=== PATIENT | female | born 1935 | race Caucasian/White ===

== ENCOUNTER → 2017-06-14 | Outpatient (CLI) | payer MEDICARE, OTHER ==
[~2017-06-14] MED LIST: MIRALAX17 GM PO
--- NOTE | 2017-06-14 15:47 | NUR ---
ARRIVED AMBULATORY. PORT A CATH INTACT WITH NO SIGN OF INFECTION. PORT ACCESSED WITH OUT DIFFICULTY. GOOD BRISK BLOOD RETURN NOTED AND FLLUSHED WITH EASE. PORT FLUSHED AND DEACCESSED. TOLERATED WELL. DENIES NEEDS AT DISCHARGE.
== END ==
LOC: M.INFUS 06-13 14:30
DX: C77.2 Secondary and unspecified malignant neoplasm of intra-abdominal lymph nodes (principal); C18.7 Malignant neoplasm of sigmoid colon

== ENCOUNTER → 2017-08-09 | Outpatient (CLI) | payer MEDICARE, OTHER ==
--- NOTE | 2017-08-09 15:17 | NUR ---
PORT A CATH ACCESSED AND FLUSHED WITH EASE. PORT FLUSHED AND THEN DEACCESSED. BANDAID APPLIED. DENIES NEEDS AT [facility].
== END ==
LOC: M.INFUS 01:26
DX: C18.7 Malignant neoplasm of sigmoid colon (principal); C77.2 Secondary and unspecified malignant neoplasm of intra-abdominal lymph nodes; Z85.038 Personal history of other malignant neoplasm of large intestine

== ENCOUNTER → 2017-10-11 | Outpatient (CLI) | payer MEDICARE, OTHER | LOC: M.INFUS 00:54 | DX: Z45.2 Encounter for adjustment and management of vascular access device (principal) ==

== ENCOUNTER → 2018-01-05 | Outpatient (CLI) | payer MEDICARE, OTHER ==
--- NOTE | 2018-01-05 15:58 | NUR ---
ARRIVED AMUBLATORY. MADE SELF COMFORTABLE. PORT A CATH ACCESSED WITH OUT DIFFICULTY. GOOD EASY FLUSH NO BLOOD RETURN. DISCCUSED WITH PT NEED FOR CATHFLO. PT STATES THAT SHE DOES NOT HAVE TIME TODAY AND WILL SCHEDULE TO CAME BACK IN AND HAVE IT DONE. DENEIS QUESTION AT DISCHARGE.
== END ==
LOC: M.INFUS 02:00
DX: Z45.2 Encounter for adjustment and management of vascular access device (principal); C18.7 Malignant neoplasm of sigmoid colon; C77.2 Secondary and unspecified malignant neoplasm of intra-abdominal lymph nodes; R10.9 Unspecified abdominal pain; Z85.038 Personal history of other malignant neoplasm of large intestine

== ENCOUNTER → 2018-02-11 | Emergency (ER) | payer MEDICARE, OTHER ==
[~2018-02-11] VITALS: Ht 167.6 cm; Wt 61.2 kg
[2018-02-11 16:12] LABS: ABSOLUTE LYMPHOCYTES 0.7 thou/uL (0.8-5.3); ABSOLUTE MONOCYTES 0.3 thou/uL (0.0-1.2); ABSOLUTE NEUTROPHILS 3.1 thou/uL (1.6-8.1); BASOPHILS 0.3 %; EOSINOPHILS 0.1 %; HEMATOCRIT 40.4 % (37.0-47.0); HEMOGLOBIN 13.4 gm/dL (12.0-15.0); LYMPHOCYTES 17.4 %; MCH 30.6 pg (26.0-34.0); MCHC 33.2 g/dL (28.0-37.0); MCV 92.3 fL (80.0-100.0); MONOCYTES 6.5 %; MPV 7.3 fl. (7.2-11.1); NUCLEATED RBCS 0 /100WBC; PLATELET COUNT* 179 thou/uL (150-400); POLYS 75.7 %; RBC 4.38 mil/uL (4.20-5.00); RDW-CV 14.7 % (10.5-14.5); WBC 4.1 thou/uL (4.0-11.0)
[2018-02-11 16:23] LABS: ANION GAP 3 mmol/L (7-16); BUN 13 mg/dL (7-18); CHLORIDE 102 mmol/L (98-107); CO2 29 mmol/L (21-32); CREATININE 0.8 mg/dL (0.6-1.3); GLUCOSE 111 mg/dL (70-99); POTASSIUM 3.8 mmol/L (3.5-5.1); SODIUM 134 mmol/L (136-145)
[2018-02-11 16:30] LABS: ALBUMIN 3.6 g/dL (3.4-5.0); ALKALINE PHOSPHATASE 93 U/L (46-116); LIPASE 185 U/L (73-393); SGOT 29 U/L (15-37); SGPT 30 U/L (30-65); TOTAL BILIRUBIN 0.3 mg/dL (<0.1-1.0); TOTAL PROTEIN 6.6 g/dL (6.4-8.2); TROPONIN-I LEVEL <0.06 ng/mL (<0.06)
[2018-02-11 17:27] LABS: URINE BILIRUBIN NEGATIVE (Negative); URINE BLOOD NEGATIVE (Negative); URINE CLARITY CLEAR; URINE COLOR YELLOW; URINE GLUCOSE-RANDOM NEGATIVE (Negative); URINE KETONES 2+ (Negative); URINE LEUKOCYTES-REFLEX TRACE (Negative); URINE NITRITE-REFLEX NEGATIVE (Negative); URINE PROTEIN NEGATIVE (Negative); URINE SPECIFIC GRAVITY >= 1.030 (1.005-1.030); URINE UROBILINOGEN 0.2 E.U./dl (0.2-1.0)
[2018-02-11 17:45] LABS: BACTERIA-REFLEX 1-9 Few /HPF (None Seen); MUCUS 4-6 Moderate strn/LPF (None Seen); SQUAMOUS 0-3 Few /LPF (0-3); URINE WBC-REFLEX 0-5 Rare /HPF (0-5)
[2018-02-11 17:46] LABS: CASTS None Seen /LPF (None Seen); CRYSTALS None Seen /LPF (None Seen); URINE RBC None Seen /HPF (0-2)
[2018-02-11 18:17] VITALS: BP 137/80
== END ==
LOC: M.ERS 15:51
PROVIDERS: Nurse Practitioner Family
DX: R11.2 Nausea with vomiting, unspecified (principal); R10.84 Generalized abdominal pain; Z96.643 Presence of artificial hip joint, bilateral; Z85.038 Personal history of other malignant neoplasm of large intestine

== ENCOUNTER → 2018-03-09 | Outpatient (CLI) | payer MEDICARE, OTHER ==
--- NOTE | 2018-03-09 16:25 | NUR ---
ARRIVED AMBULATORY. MADE SELF COMFORTABLE IN RECLINER. PORT A CATH ACCESSED. ABLE TO FLUSH BUT NO BLOOD RETURN WITH ASPERATION. CATHFLOW INSTILLED PER POLICY.
--- NOTE | 2018-03-10 11:20 | NUR ---
ARRIVED AMBULATORY. MADE SELF COMFORTABLE IN RECLINER. PORT A CATH ACCESSED. ABLE TO FLUSH PORT BUT NOT ABLE TO GET BLOOD RETURN WITH ASPERATION. CATH FLOW INSTILLED PER PROTOCOL. AT 2 HOURS UNABLE TO GET BLOOD RETURN. PORT LEFT ACCESSED PT DISCHARGED TO HOME WITH INSTRUCTION TO RETURN FOR 2ND DOSE OF CATH FLOW TODAY. PT ARRIVED TO INFUSION AMBULATORY. LINE CHECKED AND STILL ABLE TO FLUSH BUT NO BLOOD RETUN NOTED. 2ND DOS IF CATH FLOW INSTILLED.
--- NOTE | 2018-03-10 15:51 | NUR ---
PORT CHECKED FOR PATENCY. GOOD BRISK BLOOD RETURN NOTED AND FLUSHED WITH EASE. PORT FLUSHED AND PACKED WITH HEPARIN. PORT DEACCESSED. TOLERATED WELL.
== END ==
LOC: M.INFUS 03-07 04:46
DX: Z45.2 Encounter for adjustment and management of vascular access device (principal); C18.8 Malignant neoplasm of overlapping sites of colon

== ENCOUNTER → 2018-04-03 | Outpatient (CLI) | payer MEDICARE, OTHER ==
--- NOTE | 2018-04-03 15:34 | NUR ---
PORT A CATH ACCESSED. GOOD BRISK BLOOD RETURN NOTED AND FLUSHED WITH EASE. PORT FLUSHED THEN DEACCESSED. TOLERATED WELL.
== END ==
LOC: M.INFUS 06:24
DX: Z45.2 Encounter for adjustment and management of vascular access device (principal)

== ENCOUNTER → 2018-05-01 | Outpatient (CLI) | payer MEDICARE, OTHER | LOC: M.INFUS 06:54 | DX: Z45.2 Encounter for adjustment and management of vascular access device (principal) ==

== ENCOUNTER → 2018-05-29 | Outpatient (CLI) | payer MEDICARE, OTHER ==
--- NOTE | 2018-05-29 15:32 | NUR ---
ARRIVED AMUBLATORY. MADE SELF COMFORTABLE IN RECLINER. PORT A CATH ACCESSED WITH OUT DIFFICULTY. SLUGGISH BLOOD RETURN NOTED LINE FLUSHED WITH EASE. PT DOES NOT HAVE TIME TO CATH FLOW TODAY. STATED SHE WANTS TO HAVE PORT REMOVED SOON AND WILL CALL AND SCHEDULE NEXT MONTH IF NEEDED.
== END ==
LOC: M.INFUS 15:11
DX: Z45.2 Encounter for adjustment and management of vascular access device (principal); R10.9 Unspecified abdominal pain

== ENCOUNTER 2019-03-30 00:40 | Inpatient (IN) | payer MEDICARE, OTHER ==
[~2019-03-30] VITALS: Ht 167.6 cm; Wt 63.5 kg
[2019-03-30 00:48] VITALS: BP 174/102
[2019-03-30 01:04] LABS: URINE BILIRUBIN NEGATIVE (Negative); URINE BLOOD NEGATIVE (Negative); URINE CLARITY CLEAR; URINE COLOR YELLOW; URINE GLUCOSE-RANDOM NEGATIVE (Negative); URINE KETONES NEGATIVE (Negative); URINE LEUKOCYTES-REFLEX NEGATIVE (Negative); URINE NITRITE-REFLEX NEGATIVE (Negative); URINE PROTEIN NEGATIVE (Negative); URINE UROBILINOGEN 0.2 E.U./dl (0.2-1.0)
[2019-03-30 01:06] LABS: ABSOLUTE BASOPHILS 0.1 thou/uL (0.0-0.2); ABSOLUTE LYMPHOCYTES 1.7 thou/uL (0.8-5.3); ABSOLUTE MONOCYTES 0.4 thou/uL (0.0-1.2); ABSOLUTE NEUTROPHILS 5.9 thou/uL (1.6-8.1); BASOPHILS 0.7 %; EOSINOPHILS 0.6 %; HEMATOCRIT 41.1 % (37.0-47.0); HEMOGLOBIN 13.8 gm/dL (12.0-15.0); LYMPHOCYTES 21.1 %; MCH 30.6 pg (26.0-34.0); MCHC 33.7 g/dL (28.0-37.0); MCV 90.7 fL (80.0-100.0); MONOCYTES 5.1 %; MPV 7.8 fl. (7.2-11.1); NUCLEATED RBCS 0 /100WBC; PLATELET COUNT* 248 thou/uL (150-400); POLYS 72.5 %; RBC 4.53 mil/uL (4.20-5.00); RDW-CV 14.4 % (10.5-14.5); WBC 8.2 thou/uL (4.0-11.0)
[2019-03-30 01:17] LABS: PROTIME 10.1 Seconds (9.20-11.50)
[2019-03-30 01:25] LABS: CALCIUM 8.9 mg/dL (8.5-10.1); POTASSIUM 3.9 mmol/L (3.5-5.1)
[2019-03-30 01:35] LABS: ALBUMIN 4.1 g/dL (3.4-5.0); TOTAL BILIRUBIN 0.2 mg/dL (<0.1-1.0); TOTAL PROTEIN 7.5 g/dL (6.4-8.2)
[2019-03-30 04:20] VITALS: BP 195/58
[2019-03-30 04:28] VITALS: BP 160/64
--- NOTE | 2019-03-30 07:51 | NUR ---
Admit to floor at 0415. She is alert and oriented x 4. 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 She had a past abdominal colectomy and has had a blockage and feels like this is the same thing the pain is right at her umbilicus. She isn't able to drink anything or she will have emesis. She pain and nausea meds x 1 on the floor.
[2019-03-30 08:20] VITALS: BP 114/46
--- NOTE | 2019-03-30 10:43 | EKG ---
[place] [address] ELECTROCARDIOGRAM REPORT Name: RADHA MARTINEZ Room: [address] ADM IN .R.#: [id number] Admission: 03/30/19 Attend Phys: Meg Augustine Discharge: Date of : 35 Report #: [id number] THIS REPORT FOR: //name// [facility] ED Test Date: 2019-03-30 Test Time: 01:01:07 Pat Name: RADHA MARTINEZ Department: Room: [facility] Gender: F Auto Emissions Technician: : 1935 Requested By: Augusta Muñiz Order Number: [id number] MD: Jared Almendarez Measurements Intervals [place] Rate: 85 P: 56 MT: 156 QRS: 73 QRSD: 105 T: 42 QT: 375 QTc: 446 Interpretive Statements Sinus rhythm Probable left ventricular hypertrophy ST depr, consider ischemia, inferior leads Minimal ST elevation, anterolateral leads Compared to ECG 11/27/2016 01:05:04 Possible ischemia now present ST (T wave) deviation now present Electronically Signed On 03-30-2019 10:42:51 PHYSICAL METALLURGIST by Jared Almendarez [email or web address] <ELECTRONICALLY SIGNED> By: Jared Almendarez MD, FACC 03/30/19 1042 0 0 Jared Almendarez MD, FACC /EPI
[2019-03-30 16:00] VITALS: BP 98/42
--- NOTE | 2019-03-30 16:42 | NUR ---
SW met with pt to complete initial assessment, introduce self, and SW role. Pt dtr visiting with pt. Pt alert, oriented, pleasant. Pt lives at home with her sister and pt dtr is supportive. Pt is independent and active. Pt anticipates being able to dc tomorrow in time for her grandchild's 3rd birthday. No known dc needs.
--- NOTE | 2019-03-30 19:34 | NUR ---
PATIENT AMBULATING TO BATHROOM SEVERAL TIMES THROUGHOUT THE SHIFT. ALL SAFETY MEASURES MAINTAINED. PATIENT DENIES PAIN AND NAUSEA AT THIS TIME. PATIENT REPORTS 2 SMALL BMS.
[2019-03-30 21:20] VITALS: BP 106/43
[2019-03-31 01:30] VITALS: BP 100/37
--- NOTE | 2019-03-31 05:27 | NUR ---
PT HAS DENIED PAIN OR NAUSEA THIS SHIFT, UP INDEP TO BATHROOM TO VOID AND REPORTS 2 SMALL LOOSE BROWN BMS THIS SHIFT. NO LABS THIS MORNING. LAC IVF INFUSING PER PUMP. REQUESTING SLEEP MEDGENO GIVEN AT HS PER PT REQUEST. HOPEFUL FOR DIET ADVANCEMENT TODAY. ABLE TO USE CALL LITE AND MAKE NEEDS KNOWN. CALL LITE IN EASY REACH.
[2019-03-31 08:00] VITALS: BP 125/55
--- NOTE | 2019-03-31 15:33 | NUR ---
ASSUMED CARE OF PATIENT THIS AM AT 0730. PATIENT IS ALERT AND ORIENTED X 4. SHE DENIES N/V AMD ABD PAIN THIS AM. IV FLUIDS CONTINUED PER ORDER. DR IN TO ROUND AND NNO AT THE PRESENT TIME. PATIENT HAS BEEN NPO. SHE C/O A MIX THIS AFTERNOON. NOTIFIED
[2019-03-31 16:32] VITALS: BP 128/56
[2019-03-31 19:40] VITALS: BP 125/55
--- NOTE | 2019-04-01 06:07 | NUR ---
PT ALERT AND ORIENTED. VSS ON RA. PT GOT LITTLE SLEEP THIS TIME. AMBIEM DID NOT WORK FOR HER LIKE IT USED TO, DESPITE GIVEN TWICE. NS @100 ON RFA. CLEAR LIQUID DIET. CALL LIGHT WITHIN REACH. HOURLY ROUNDINGS MADE. WILL CONTINUE TO MONITOR.
[2019-04-01 07:40] VITALS: BP 125/55
[2019-04-01 08:06] VITALS: BP 125/55
[2019-04-01 11:13] LABS: HEMATOCRIT 33.2 % (37.0-47.0); MCH 31.3 pg (26.0-34.0); MCHC 34.3 g/dL (28.0-37.0); MCV 91.1 fL (80.0-100.0); MPV 7.5 fl. (7.2-11.1); RBC 3.65 mil/uL (4.20-5.00); RDW-CV 14.2 % (10.5-14.5); WBC 4.5 thou/uL (4.0-11.0)
[2019-04-01 11:14] LABS: HEMOGLOBIN 11.4 gm/dL (12.0-15.0)
[2019-04-01 14:29] VITALS: BP 125/55
[2019-04-01 14:56] VITALS: BP 125/55
--- NOTE | 2019-04-01 14:56 | NUR ---
PT GIVEN DSICHARGE INFORMATION. IV REMVOED. PT LEFT AMBULATORY WITH NURSING STAFF TO HOME. FALL RISK PRECAUTIONS IN PLACE. HOURLY ROUNDING COMPLETED.
--- NOTE | 2019-04-01 14:57 | CON ---
[address] [address] CONSULTATION Name: DEBRAOSWALDRADHA Room: [address] IN M.R.#: [id number] Admission: 03/30/19 Attend Phys: Meg Augustine Discharge: 04/01/19 Date of : 35 Report #: [id number] THIS REPORT FOR: //name// CC: FAM claire Cortez DO Salty Penny DICTATED BY: Felicia Esquivel [facility] DATE OF SERVICE: 03/30/2019 Please note at the time of this dictation, the patient was seen and physically examined by myself. REASON FOR CONSULTATION: Abdominal pain, possible small-bowel obstruction, history of colon cancer. HISTORY OF PRESENT ILLNESS: This is a pleasant 83-year-old female who presented to the Emergency Room with having some abdominal pain, cramping and some vomiting after attempting to have liquids. She states her bowels moved yesterday; they were of less caliber than what they normally are. She does take MiraLax daily for all of this. The patient states all of her symptoms started with the abdominal pain, felt a little nauseous and when she tried to drink, everything came back up. It was negative for any bright red blood or any coffee-ground emesis. The patient states she has had this happened before in which she has developed small bowel obstructions secondary to adhesions from her previous surgeries. The patient has a history of colon cancer in which she underwent resection down in [place], [place], about 8-10 years ago. She subsequently followed up with Dr. Pancho Gómez, at [facility] her oncologist. She was unable to tolerate chemo, eventually moved to oral agents, still intolerable and then decided to quit all of that. She has not had any chemo for some time and her last colonoscopy was with him and that has been a while back. They both were in agreement not to do anything further, and if it comes back, she states it comes back. ALLERGIES: No known drug allergies. MEDICATIONS: From home, is only MiraLax. PAST MEDICAL HISTORY: She had colon cancer, history of small bowel obstructions. PAST SURGICAL HISTORY: She has had a left colectomy and bilateral hip replacements. FAMILY HISTORY: [place], [place] [address] CONSULTATION Name: RADHA MARTINEZ Room: [address]#: [id number] Admission: 03/30/19 Attend Phys: Meg Augustine Discharge: 04/01/19 Date of : 35 Report #: [id number] SOCIAL HISTORY: Denies any alcohol or illegal drug use. She did have a 20-year pack history, quit some time ago. REVIEW OF SYSTEMS: Twelve-point review of systems is essentially negative except what is mentioned in the HPI. PHYSICAL EXAMINATION: VITAL SIGNS: Temperature 36.8, pulse 75, respirations 16, blood pressure 114/46. HEART: Regular rate and rhythm. LUNGS: Clear. ABDOMEN: Soft. Positive hypoactive bowel sounds are noted with some slight tenderness noted in the umbilical area, but no abdominal distention noted. LABORATORY DATA: Hemoglobin 13.8, white count is 8.2, platelets 248. GFR is 53. Total bilirubin is 0.2, alkaline phosphatase 123, ALT 34, AST is 25. CT of the abdomen and pelvis shows dilated small bowel loops suggestive of partial obstruction in the lower pelvis with minimal mesenteric edema noted. IMPRESSION: 1. Abdominal pain. 2. Nausea and vomiting. 3. Abnormal CT, dilated small bowel loops. 4. History of small bowel obstruction. 5. History of colon cancer status post colectomy. 6. Family history of breast cancer. PLAN: 1. N.p.o. except ice chips. 2. Abdominal x-ray. 3. Dulcolax suppository. 4. Labs, CBC and CMP in a.m. 5. The patient refuses NG tube. 6. Further recommendations to be made once the abdominal x-ray has been noted and any results from her suppository. Thank you for allowing us to participate in this patient's care. Please do not hesitate to call with any questions in regard to this consult. I agree with the above assessment and plan by Felicia Esquivel <ELECTRONICALLY SIGNED> By: Ron De MD 04/01/19 1457 1054 [id number] De MD /nt
== END 2019-04-01 14:57 | disposition home or self-care (01) | DRG 389 ==
LOC: M.ERS 00:40 → M.3W 03:30 → M.TBA-ER 03:30 → M.3W 04:12
PROVIDERS: Emergency Medicine; Internal Medicine; ADMIT Internal Medicine
DX: K56.600 Partial intestinal obstruction, unspecified as to cause (principal); R71.0 Precipitous drop in hematocrit; K52.9 Noninfective gastroenteritis and colitis, unspecified; E83.51 Hypocalcemia; Z96.643 Presence of artificial hip joint, bilateral; Z93.3 Colostomy status

== ENCOUNTER 2019-07-02 23:52 | Inpatient (IN) | payer MEDICARE, OTHER ==
[~2019-07-02] VITALS: Ht 167.6 cm; Wt 69.7 kg
[2019-07-03 00:03] VITALS: BP 162/90
[2019-07-03 01:47] LABS: ABSOLUTE LYMPHOCYTES 0.8 thou/uL (0.8-5.3); ABSOLUTE MONOCYTES 0.3 thou/uL (0.0-1.2); ABSOLUTE NEUTROPHILS 5.9 thou/uL (1.6-8.1); BASOPHILS 0.5 %; EOSINOPHILS 0.3 %; HEMATOCRIT 37.3 % (37.0-47.0); HEMOGLOBIN 12.9 gm/dL (12.0-15.0); LYMPHOCYTES 11.7 %; MCH 31.1 pg (26.0-34.0); MCHC 34.5 g/dL (28.0-37.0); MCV 90.1 fL (80.0-100.0); MONOCYTES 4.6 %; MPV 8.2 fl. (7.2-11.1); NUCLEATED RBCS 0 /100WBC; PLATELET COUNT* 211 thou/uL (150-400); POLYS 82.9 %; RBC 4.14 mil/uL (4.20-5.00); RDW-CV 14.6 % (10.5-14.5); WBC 7.1 thou/uL (4.0-11.0)
[2019-07-03 02:13] LABS: CALCIUM 8.6 mg/dL (8.5-10.1); CREATININE 0.8 mg/dL (0.6-1.3); POTASSIUM 3.8 mmol/L (3.5-5.1)
[2019-07-03 02:17] LABS: ALBUMIN 3.8 g/dL (3.4-5.0); TOTAL BILIRUBIN 0.4 mg/dL (<0.1-1.0); TOTAL PROTEIN 6.8 g/dL (6.4-8.2)
[2019-07-03 05:45] VITALS: BP 118/28
[2019-07-03 08:04] VITALS: BP 97/53
[2019-07-03 08:15] VITALS: BP 117/92
[2019-07-03] MEDS ORDERED: REMERON15 M2 PO (09:11)
[2019-07-03 15:30] VITALS: BP 97/36
--- NOTE | 2019-07-03 16:00 | NUR ---
CM ASSESSMENT: VISITED WITH PT IN ROOM. PT LIVES AT HOME WITH HER . SHE IS INDEPENDENT WITH ALL ADLS. DOES NOT HAVE ANY DME. DENIES HH NEEDS. WILL CONTINUE TO FOLLOW IF NEEDED
--- NOTE | 2019-07-03 16:04 | NUR ---
CM ASSESSMENT: PT LIVES AT HOME WITH HER SISTER. PT DOES NOT HAVE ANY DME. PT DRIVES AND IS INDEPENDENT WITH ALL ADLS. DENIES NEED FOR HH. CM WILL CONTINUE TO FOLLOW IF NEEDED
--- NOTE | 2019-07-03 18:44 | NUR ---
PATIENT ADMITTED TO ROOM 307 FROM ER. ALERT AND ORIENTED. NO COMPLAINTS OF PAIN OR NAUSEA. IVF INFUSED ORDERED. NPO STATUS. PATIENT GIVEN ORAL CARE ITEMS. UP AD ATUL TO BATHROOM. REFUSED SCD'S. GI CONSULTED AND SAW PATIENT THIS AFTERNOON, WILL REPEAT KUB IN AM AND THEN POSSIBLE ADVANCE OF DIET DEPENDING ON RESULTS. ORIENTED TO CALL LIGHT. CALL LIGHT HAS REMAINED IN REACH, WILL CONTINUE TO MONITOR.
[2019-07-03 22:51] VITALS: BP 112/53
--- NOTE | 2019-07-04 05:04 | NUR ---
PATIENT ALERT/ORIENTED X4, PLEASANT. PT DENIES PAIN/NAUSEA DURING THIS SHIFT. FLUIDS INFUSING PER DR ORDER. PT NPO EXCEPT FOR SIP OF WATER WITH BENEDRYL AT HS. PT UP TO BATHROOM WITH STEADY GAIT. FREQUENTLY USED ITEMS AND CALL LIGHT WITHIN REACH. SIDERAILS UPX2. WILL CONTINUE TO MONITOR.
[2019-07-04 05:05] LABS: MCH 31.2 pg (26.0-34.0); MCHC 34.4 g/dL (28.0-37.0); MCV 90.8 fL (80.0-100.0); MPV 7.7 fl. (7.2-11.1); RBC 3.53 mil/uL (4.20-5.00); RDW-CV 14.6 % (10.5-14.5); WBC 3.7 thou/uL (4.0-11.0)
[2019-07-04 05:28] LABS: ALBUMIN 2.5 g/dL (3.4-5.0); CALCIUM 7.2 mg/dL (8.5-10.1); CREATININE 0.8 mg/dL (0.6-1.3); POTASSIUM 3.7 mmol/L (3.5-5.1); TOTAL BILIRUBIN 0.4 mg/dL (<0.1-1.0)
[2019-07-04 08:15] VITALS: BP 105/32
[2019-07-04 16:00] VITALS: BP 109/49
--- NOTE | 2019-07-04 17:16 | NUR ---
PATIENT HAD KUB THIS AM, RESULTS READ TO DR. COOL AND CASS OROURKE FROM GI NOTIFIED. PER JUNIOR OROURKE GIVE PATIENT SUPPOSITORY AND IF GAS OR BM PATIENT OK TO HAVE CLEAR LIQUID DIET. PATIENT DID HAVE BM AND OK PER DR. COOL FOR PATIENT TO HAVE CLEAR LIQUID DIET. PATIENT TOLERATING WITHOUT DIFFICULTY. PATIENT HAS HAD 2 BM'S THIS SHIFT. IVF REMAINS INFUSING. UP AD ATUL WITHOUT DIFFICULTY.
[2019-07-04 20:00] VITALS: BP 130/40
[2019-07-05 03:42] LABS: CALCIUM 7.1 mg/dL (8.5-10.1); CREATININE 0.6 mg/dL (0.6-1.3); MAGNESIUM 1.6 mg/dL (1.8-2.4); POTASSIUM 3.5 mmol/L (3.5-5.1)
--- NOTE | 2019-07-05 06:55 | NUR ---
ASSESSMNT: PT REMAIN ALERT AND ORIENT TIMES FOUR. C/O NOT BEING ABLE TO SLEEP. BENEDRYL GIVEN TWICE, NO GOOD RESULTS. VSS, AFBRILE. UP AD ATUL. MAG REPLACED THIS AM WITH 800 MG. SLOW PROGRESS TOWARDS DC GOALS, WILL CONTINUE TO MONITOR.
[2019-07-05 07:50] VITALS: BP 143/60
[2019-07-05] MEDS ORDERED: SENNA PLUS TAB1 EACH PO (09:27)
[2019-07-05 10:59] VITALS: BP 143/60
--- NOTE | 2019-07-05 14:15 | NUR ---
PT A&OX4 VSS. PT DIERT ADVANCED TO FULL LIQUIDS AT BREAKFAST, TOLERATES WELL. DIET ADVANCED TO REGULAR FOR LUNCH AND TOLERATES. PT UP AD ATUL, GAIT STEADY. IV TO R WRIST DC'D PRIOR TO LEAVING UNIT. PT DENIES PAIN, N/V. PT REPORTED DIFFICULTY SLEEPING LAST NOC DESPITE TAKING BENEDRYL. PT ABLE TO EAT REG DIET WITHOUT DIFFICULTY, ELIGIBLE FOR DC TO HOME. PT DRESSED INDEPENDENTLY. PT STATES UDERSTANDING OF DC AND F/U INSTRUCTIONS. PT AMBULATED FROM UNIT WITH NURSING STAFF.
[2019-07-05 14:32] VITALS: BP 143/60
--- NOTE | 2019-07-09 18:15 | CON ---
[address] [address] CONSULTATION Name: RADHA MARTINEZ Meg Room: [address] IN M.R.#: [id number] Admission: 07/03/19 Attend Phys: Tomás Jones MD Discharge: 07/05/19 Date of : 35 Report #: [id number] THIS REPORT FOR: //name// cc: Katy Cortez Maggie M. DO ~ THIS REPORT FOR: //name// CC: Tomás Cortez DO DICTATED BY: Felicia Esquivel [facility] DATE OF SERVICE: 07/03/2019 Please note at the time of this dictation, the patient was seen and physically examined by myself. REASON FOR CONSULTATION: Recurrent small-bowel obstruction. HISTORY OF PRESENT ILLNESS: This is a pleasant 83-year-old female, who has been seen by our practice back in March for similar episode. She began having nausea and vomiting that started yesterday evening after eating [employer] and having some periumbilical abdominal pain. She states she has had four other occurrences like this, the last one being in March, over the last several years. She states that normally she can get it under control, but at this time, she was not able to stop vomiting. She denies any bright red blood or any coffee-ground emesis. Last time her bowels moved was during one of her episodes, last evening of vomiting and that they moved, she denies any fever, chills, any difficulty swallowing or blood in her stool. The patient states normally she will have nothing to eat or drink for a day or two and it will resolve on its own medically. The patient did have colon cancer about 8 years ago and was treated with a partial left colectomy in [place], [place]. ALLERGIES: No known drug allergies. MEDICATIONS: From home, she takes MiraLax daily to help with her bowels. PAST MEDICAL HISTORY: Colon cancer, history of small bowel obstructions. PAST SURGICAL HISTORY: Left colectomy and bilateral hip replacements. FAMILY HISTORY: Negative for any GI or female cancers. SOCIAL HISTORY: Negative for alcohol, [place] [address] CONSULTATION Name: RADHA MARTINEZ Room: [address]#: [id number] Admission: 07/03/19 Attend Phys: Tomás Jones MD Discharge: 07/05/19 Date of : 35 Report #: [id number] REVIEW OF SYSTEMS: Twelve-point review of systems is essentially negative except what is mentioned in the HPI. PHYSICAL EXAMINATION: VITAL SIGNS: Temperature 36.6, pulse 84, respirations 16, blood pressure 117/92. HEART: Regular rate and rhythm. LUNGS: Clear. ABDOMEN: Soft, positive bowel sounds in all 4 quadrants with some just very mild tenderness noted to palpation. LABORATORY DATA: Hemoglobin 12.9, white count 7.1, platelets 211. GFR is 69. LFTs are completely normal. CT showed a distal small bowel wall thickening and previous colectomy. IMPRESSION: 1. Small-bowel obstruction, recurrent. 2. Nausea and vomiting, resolved. 3. Abdominal pain, improving. 4. Colon cancer. PLAN: 1. Remain n.p.o. 2. Continue her IV fluids. 3. We will check an abdominal x-ray in a.m. If above negative, we will start her on clear liquids and see how she does tomorrow. Thank you for allowing us to participate in this patient's care. Please do not hesitate to call with any questions in regard to this consult. <ELECTRONICALLY SIGNED> By: Jt Rosario DO 07/09/19 1815 [id number] [id number] Rosario DO /nt
== END 2019-07-05 14:20 | disposition home or self-care (01) | DRG 390 ==
LOC: M.ERS 23:52 → M.3W 07-03 03:13 → M.TBA-ER 07-03 03:13 → M.3W 07-03 08:14
PROVIDERS: Emergency Medicine; Internal Medicine; ADMIT Internal Medicine
DX: K56.600 Partial intestinal obstruction, unspecified as to cause (principal); K52.9 Noninfective gastroenteritis and colitis, unspecified; Z96.643 Presence of artificial hip joint, bilateral; E88.09 Other disorders of plasma-protein metabolism, not elsewhere classified; Z79.899 Other long term (current) drug therapy; Z87.891 Personal history of nicotine dependence; Z85.038 Personal history of other malignant neoplasm of large intestine; Z90.49 Acquired absence of other specified parts of digestive tract; Z80.3 Family history of malignant neoplasm of breast

== ENCOUNTER → 2019-12-14 | Outpatient (CLI) | payer MEDICARE, OTHER ==
[~2019-12-14] MED LIST changes: +AMBIEN 10 MG TA10 MG PO; +CARAFATE 1 GM TA1 GM PO; +REMERON15 M2 PO; +SENNA PLUS TAB1 EACH PO; +ZOFRAN ODT4 MG PO
== END ==
LOC: M.LAB 07:21
PROVIDERS: ATTEND Internal Medicine Gastroenterology
DX: Z01.812 Encounter for preprocedural laboratory examination (principal); Z11.59 Encounter for screening for other viral diseases; R14.0 Abdominal distension (gaseous); K21.9 Gastro-esophageal reflux disease without esophagitis; R10.13 Epigastric pain; Z85.038 Personal history of other malignant neoplasm of large intestine

== ENCOUNTER 2019-12-15 14:56 | Emergency (ER) | payer MEDICARE, OTHER ==
[~2019-12-15] VITALS: Ht 167.6 cm; Wt 62.6 kg
[~2019-12-15 14:56] MED LIST changes: -AMBIEN 10 MG TA10 MG PO; -CARAFATE 1 GM TA1 GM PO; -ZOFRAN ODT4 MG PO
[2019-12-15] MEDS ORDERED: AMBIEN 10 MG TA10 MG PO (15:13)
[2019-12-15 15:45] LABS: ABSOLUTE LYMPHOCYTES 1.5 thou/uL (0.8-5.3); ABSOLUTE MONOCYTES 0.4 thou/uL (0.0-1.2); ABSOLUTE NEUTROPHILS 3.3 thou/uL (1.6-8.1); BASOPHILS 0.9 %; EOSINOPHILS 0.2 %; HEMATOCRIT 40.3 % (37.0-47.0); HEMOGLOBIN 13.9 gm/dL (12.0-15.0); MCH 31.3 pg (26.0-34.0); MCHC 34.6 g/dL (28.0-37.0); MCV 90.4 fL (80.0-100.0); MONOCYTES 8.1 %; MPV 7.5 fl. (7.2-11.1); NUCLEATED RBCS 0 /100WBC; PLATELET COUNT* 236 thou/uL (150-400); POLYS 61.8 %; RBC 4.46 mil/uL (4.20-5.00); RDW-CV 13.9 % (10.5-14.5); WBC 5.3 thou/uL (4.0-11.0)
[2019-12-15 15:54] LABS: CALCIUM 8.4 mg/dL (8.5-10.1); CREATININE 0.9 mg/dL (0.6-1.3); POTASSIUM 3.9 mmol/L (3.5-5.1)
[2019-12-15 15:59] LABS: TOTAL BILIRUBIN 0.6 mg/dL (<0.1-1.0); TOTAL PROTEIN 6.9 g/dL (6.4-8.2)
[2019-12-15 17:45] LABS: URINE BILIRUBIN NEGATIVE (Negative); URINE BLOOD NEGATIVE (Negative); URINE CLARITY CLEAR; URINE COLOR YELLOW; URINE GLUCOSE-RANDOM NEGATIVE (Negative); URINE KETONES 1+ (Negative); URINE LEUKOCYTES-REFLEX 1+ (Negative); URINE NITRITE-REFLEX NEGATIVE (Negative); URINE PROTEIN NEGATIVE (Negative); URINE SPECIFIC GRAVITY 1.015 (1.005-1.030); URINE UROBILINOGEN 0.2 E.U./dl (0.2-1.0)
[2019-12-15 17:51] LABS: SQUAMOUS 4-10 Moderate /LPF (0-3); WBC CLUMPS Few (None Seen)
[2019-12-15 17:52] LABS: URINE RBC 0-2 Rare /HPF (0-2); URINE WBC-REFLEX 6-15 Few /HPF (0-5)
[2019-12-15 17:53] LABS: CASTS None Seen /LPF (None Seen); CRYSTALS None Seen /LPF (None Seen); MUCUS None Seen strn/LPF (None Seen); TRANSITIONAL EPITHEL CELL 0-3 Few /LPF (None Seen)
[2019-12-15] MEDS ORDERED: CARAFATE 1 GM TA1 GM PO (18:34)
[2019-12-15] MEDS ORDERED: ZOFRAN ODT4 MG PO (18:34)
[2019-12-15 18:50] VITALS: BP 152/68
== END 2019-12-15 18:50 | disposition home or self-care (01) ==
LOC: M.ERS 14:56
PROVIDERS: Personal Emergency Response Attendant
DX: R14.2 Eructation (principal); R11.0 Nausea; Z96.643 Presence of artificial hip joint, bilateral; Z85.038 Personal history of other malignant neoplasm of large intestine